=== PATIENT | male | born 1950 | race Caucasian/White ===

== ENCOUNTER 2018-03-18 15:54 | Inpatient (IN) | payer MEDICARE ==
[~2018-03-18] VITALS: Ht 175.3 cm; Wt 99.1 kg
--- NOTE | ~2018-03-18 | EC ---
PATIENT:TARA JOSEPH DATE OF SERVICE: 03/18/18 SEX: M MEDICAL RECORD: [id number] DATE OF : 50 LOCATION:D.M2 D.213 AGE OF PATIENT: 67 ADMISSION DATE: 03/18/18 REFERRING PHYSICIAN: INTERPRETING PHYSICIAN: LORENA MANRIQUE MD ECHOCARDIOGRAM REPORT ECHO CHARGES 4 ECHO COMPLETE Date: 03/21 CLINICAL DIAGNOSIS: DYSPNEA/PULMONARY HTN ECHOCARDIOGRAPHIC MEASUREMENTS (adult normal given) AC root (d.<3.7cm) 2.8 cm LV Septum d (<1.2 cm> 1.1 cm Valve Excursion 2.2 cm LV Septum (systole) 1.4 cm Left Atria (s.<4.0cm> 4.4 cm LVPW d(<1.2cm) 1.1 cm RV (d.<2.3cm) 3.6 cm LVPW (sytole) 1.9 cm LV diastole(<5.6CM) 5.4 cm MV E-F(>70mm/sec) cm LV systole 3.3 cm LVOT Diameter 2.0 cm MV exc.(>10mm) cm Est.ejection fraction (50-75%) % DOPPLER: LVIT cm/sec A 36.0 cm/sec E 105 cm/sec LA cm/sec RVSP 59.0 mmHg LVOT 97.0 cm/sec AOP1/2T m/s Asc. Ao 130 cm/sec RVOT 75.0 cm/sec RA cm/sec PA 106 cm/sec AV Gradient Peak 6.8 mmHg AV Mean 3.7 mmHg AV Area 2.0 cm MV Gradient Peak 6.1 mmHg MV Mean 2.0 mmHg MV Area cm COMMENTS: Store Manager: Deny [employer] Accounting Teacher: 3 Dr. Quinones TAPE# PACS Pericardial Effusion N DATE OF SERVICE: Adequate 2D echo, color flow, spectral Doppler, and M-mode. No LVH. LV internal dimensions are normal. Wall motion is normal. EF is greater than or equal to 55%. Aortic valve is tricuspid. There is no septation. Left atrium is dilated at 4.4 cm. Mitral valve is thickened. Mild MR. Right-sided chambers appear grossly normal. Right atrium may be minimally dilated. Moderate TR by color flow imaging. RV systolic pressure is estimated to be greater than or equal to 59 mmHg via the continuity equation. ECHOCARDIOGRAM REPORT [id number] TARA JOSEPH TRANSINT:[id number] Voice Confirmation ID: [id number] DOCUMENT ID: [id number] LORENA MANRIQUE MD at 0804 CC: [id number] DICTATION DATE: 03/21/18 1358 HANDER IN: 03/21/18 1433 DIS IN 03/21/18 [id number] [place] [address]
--- NOTE | ~2018-03-18 | CN ---
PATIENT NAME:TARA JOSEPH MEDICAL RECORD: [id number] : 50 LOCATION:D. D.2137 ADMIT DATE: 03/18/18 ACCOUNT: [id number] CONSULTING PHYSICIAN: BENJIE BEAL MD REFERRING PHYSICIAN: NORMA CAMPOS MD DATE OF CONSULTATION: 03/19/2018 CONSULT REQUESTING PHYSICIAN: Riccardo Posey MD REASON FOR CONSULTATION: Shortness of breath, fever. HISTORY OF PRESENT ILLNESS: Mr. Joseph is a 67-year-old gentleman who is sick for the last 4 weeks. He is coughing. He has wheezing and shortness of breath. He is running fever of 104. He took 2 courses of antibiotic as outpatient without any benefit. REVIEW OF THE SYSTEMS: Mainly in the history of present illness. PAST MEDICAL HISTORY: 1. Asthma. 2. Obstructive sleep apnea. 3. Coronary artery disease. 4. Status post pacemaker placement. 5. Atrial fibrillation. 6. Anxiety. 7. PTSD. PAST SURGICAL HISTORY: 1. T&A. 2. CABG in 2000. 3. Status post cardiac catheterization and stent placement. 4. Status post pacemaker placement. 5. Vein stripping surgery in left lower extremity. ALLERGIES: HE IS ALLERGIC TO NSAIDs, ALPRAZOLAM, DIAZEPAM, TORADOL, CLARITIN, NITROGLYCERIN. PRESENT MEDICATIONS: [employer] is reviewed. PERSONAL AND SOCIAL HISTORY: The patient never smoked. He is nondrinker. FAMILY HISTORY: Noncontributory. PHYSICAL EXAMINATION: GENERAL: Now, the patient is lying comfortably in bed. He is not in acute distress. VITAL SIGNS: The blood pressure is 111/54, pulse is 90, respiration 20, temperature 98.4, SpO2 is 98% on 3 liters nasal cannula. HEENT: Conjunctivae are pink. Sclerae are not icteric. NECK: Supple. No JVD. CHEST: There are wheeze on forceful expiration and crackle at the left base. HEART: Rhythm regular. Normal sound. No murmur. ABDOMEN: Abdomen is soft. Bowel sounds present. No hepatosplenomegaly. RECTAL: Deferred. EXTREMITIES: No cyanosis. No clubbing. No pedal edema. CONSULT REPORT [id number] TARA JOSEPH SKIN: The skin is warm. Normal turgor. CENTRAL NERVOUS SYSTEM: The patient is awake and alert. There is no obvious cranial nerve abnormality. The gait was not tested. LABORATORY DATA: CBC; the WBC is 17.9, hemoglobin 13.6, hematocrit 41.7, and the platelet count is 183. Chemistry; sodium 138, potassium is 3.9, BUN is 12, creatinine is 0.9. INR is 1.25. IMPRESSION: 1. Pneumonia, left lower lobe, most likely community-acquired pneumonia. 2. Acute hypoxic respiratory failure. 3. Acute exacerbation of asthma. 4. Obstructive sleep apnea. 5. Leukocytosis secondary to pneumonia. 6. History of CAD. 7. Atrial fibrillation. RECOMMENDATION: 1. Continue Rocephin. I will add doxycycline. I will discontinue Zithromax. 2. Start methylprednisolone IV. Start Brovana and budesonide nebulizer. 3. Albuterol and ipratropium nebulizer. Start on Singulair. 4. Check the CT scan of the chest. 5. Followup labs and chest radiograph. Dr. Posey, thank you for involving me in the care of Mr. Joseph. TRANSINT:[id number] Voice Confirmation ID: [id number] DOCUMENT ID: [id number] BENJIE BEAL MD at 1208 CC: RICCARDO POSEY MD [id number] DICTATION DATE: 03/19/18 1542 MANAGER COMPETITIVE INTELLIGENCE: 03/19/18 1721 DIS IN 03/21/18 [id number] [place] [address]
[~2018-03-18 15:54] MED LIST: AMBIEN10 MG PO; ATENOLOL25 MG PO; COUMADIN2.5 MG PO; K-DUR20 MEQ PO; KLONOPIN0.5 MG PO; LASIX40 MG PO; LOVAZA1 G PO; NORCO 10/325 TA1 TA1 PO; PRILOSEC20 MG PO; [UNRECOGNIZED DRUG - OTHER] PO
[2018-03-18 16:45] LABS: BASOPHILS 0.1 % (0-2); EOSINOPHILS 0 % (0-7); HEMATOCRIT 41.7 % (42.0-54.0); HEMOGLOBIN 13.6 g/dL (13.5-17.5); IMMATURE GRANULOCYTES 0.5 % (0-5); MCH 29.7 pg (26.0-34.0); MCHC 32.6 g/dL (31.0-37.0); MEAN PLATELET VOLUME 9.9 fL (7.4-10.4); MONOCYTES 5.8 % (2-11); NEUTROPHILS 86.6 % (40-80); PLATELET COUNT 103 10x3/uL (130-400); RBC 4.58 10x6/uL (4.20-6.10); RDW 16.7 % (11.5-14.5); WBC 17.9 10x3/uL (4.8-10.8)
[2018-03-18 16:55] LABS: APPEARANCE CLEAR (CLEAR); BILIRUBIN NEGATIVE (NEGATIVE); COLOR AMBER (YELLOW); GLUCOSE NEGATIVE (NEGATIVE); KETONE NEGATIVE (NEGATIVE); NITRITE NEGATIVE (NEGATIVE); PROTEIN NEGATIVE (NEGATIVE); SPECIFIC GRAVITY 1.015 (1.005-1.020); UROBILINOGEN NORMAL (NORMAL)
[2018-03-18 17:03] LABS: POTASSIUM - SERUM 3.8 mmol/L (3.5-5.1)
[2018-03-18 17:17] LABS: ALBUMIN 2.7 g/dL (3.4-5.0); ANION GAP 15.7 mmol/L (8-16); BILIRUBIN - TOTAL 1.62 mg/dL (0.2-1.3); CALCIUM 8.9 mg/dL (8.5-10.1); CARBON DIOXIDE 22.1 mmol/L (21.0-32.0); CREATININE - SERUM 1.1 mg/dL (0.6-1.3)
[2018-03-18 20:00] VITALS: BP 89/55
[2018-03-19] VITALS: BP 91/60
[2018-03-19 01:58] VITALS: BMI 30.9
[2018-03-19 04:00] VITALS: BP 94/55
[2018-03-19 09:17] VITALS: BP 83/46
[2018-03-19 10:44] VITALS: BP 111/54
[2018-03-19 13:30] LABS: INR 1.25 (0.85-1.17); PROTIME 15.3 SECONDS (11.6-15.0)
[2018-03-19 14:53] LABS: BASOPHILS 0.2 % (0-2); EOSINOPHILS 0.4 % (0-7); HEMATOCRIT 36.4 % (42.0-54.0); IMMATURE GRANULOCYTES 0.4 % (0-5); LYMPHOCYTES 21.1 % (15-50); MCH 29.8 pg (26.0-34.0); MCV 90.3 fL (80.0-100.0); MEAN PLATELET VOLUME 9.1 fL (7.4-10.4); MONOCYTES 6.6 % (2-11); NEUTROPHILS 71.3 % (40-80); PLATELET COUNT 90 10x3/uL (130-400); RBC 4.03 10x6/uL (4.20-6.10); RDW 16.6 % (11.5-14.5)
[2018-03-19 14:58] LABS: WBC 10.7 10x3/uL (4.8-10.8)
[2018-03-19 15:15] LABS: ALBUMIN 2.5 g/dL (3.4-5.0); ALKALINE PHOSPHATASE 106 U/L (46-116); ALT (SGPT) 16 U/L (10-68); CALC OSMOLALITY 279 mosm/kg (275-300); CALCIUM 8.2 mg/dL (8.5-10.1); CHLORIDE - SERUM 104 mmol/L (98-107); CREATININE - SERUM 0.9 mg/dL (0.6-1.3); GLUCOSE 165 mg/dL (74-106); POTASSIUM - SERUM 3.9 mmol/L (3.5-5.1); SODIUM 138 mmol/L (136-145); UREA NITROGEN 12 mg/dL (7-18); eGFR NON AFRICAN AMERICAN 89 mL/min (90-120)
[2018-03-19 15:17] VITALS: BP 133/71
[2018-03-19 15:20] LABS: PLATELET ESTIMATE DECREASED
[2018-03-19 19:42] VITALS: BP 126/74
[2018-03-20 00:58] VITALS: BP 105/66
[2018-03-20 04:00] VITALS: BP 107/73
[2018-03-20 07:15] LABS: BASOPHILS 0 % (0-2); EOSINOPHILS 0 % (0-7); HEMATOCRIT 37.1 % (42.0-54.0); IMMATURE GRANULOCYTES 0.5 % (0-5); MCH 29.5 pg (26.0-34.0); MCHC 32.3 g/dL (31.0-37.0); MCV 91.2 fL (80.0-100.0); MONOCYTES 1.8 % (2-11); NEUTROPHILS 84.7 % (40-80); PLATELET COUNT 107 10x3/uL (130-400); RBC 4.07 10x6/uL (4.20-6.10); RDW 16.7 % (11.5-14.5); WBC 9.7 10x3/uL (4.8-10.8)
[2018-03-20 07:35] LABS: ALBUMIN 2.5 g/dL (3.4-5.0); ALKALINE PHOSPHATASE 113 U/L (46-116); BILIRUBIN - TOTAL 0.41 mg/dL (0.2-1.3); CALCIUM 8.8 mg/dL (8.5-10.1); CARBON DIOXIDE 21.4 mmol/L (21.0-32.0); CHLORIDE - SERUM 102 mmol/L (98-107); CREATININE - SERUM 0.9 mg/dL (0.6-1.3); POTASSIUM - SERUM 4.1 mmol/L (3.5-5.1); SODIUM 136 mmol/L (136-145); UREA NITROGEN 11 mg/dL (7-18); eGFR NON AFRICAN AMERICAN 89 mL/min (90-120)
[2018-03-20 07:41] LABS: ALT (SGPT) 11 U/L (10-68); CALC OSMOLALITY 280 mosm/kg (275-300); GLUCOSE 270 mg/dL (74-106)
[2018-03-20 07:46] VITALS: BP 104/61
[2018-03-20 10:36] VITALS: BP 115/64
[2018-03-20 14:01] VITALS: Ht 175.3 cm; Wt 99.1 kg
[2018-03-20 15:35] LABS: INR 1.22 (0.85-1.17)
[2018-03-20 16:15] VITALS: BP 111/78
[2018-03-20 20:00] VITALS: BP 118/67
[2018-03-21] VITALS: BP 107/64
[2018-03-21 04:00] VITALS: BP 102/48
[2018-03-21 05:57] LABS: BASOPHILS 0 % (0-2); EOSINOPHILS 0 % (0-7); HEMOGLOBIN 11.6 g/dL (13.5-17.5); IMMATURE GRANULOCYTES 0.3 % (0-5); LYMPHOCYTES 8.7 % (15-50); MCH 29.4 pg (26.0-34.0); MCHC 32.2 g/dL (31.0-37.0); MCV 91.1 fL (80.0-100.0); MEAN PLATELET VOLUME 9.4 fL (7.4-10.4); MONOCYTES 3.2 % (2-11); NEUTROPHILS 87.8 % (40-80); PLATELET COUNT 116 10x3/uL (130-400); RBC 3.95 10x6/uL (4.20-6.10); RDW 16.6 % (11.5-14.5)
[2018-03-21 06:02] LABS: WBC 12.5 10x3/uL (4.8-10.8)
[2018-03-21 06:07] LABS: INR 1.16 (0.85-1.17); PROTIME 14.3 SECONDS (11.6-15.0)
[2018-03-21 06:21] LABS: ALBUMIN 2.5 g/dL (3.4-5.0); ALKALINE PHOSPHATASE 115 U/L (46-116); CALCIUM 9.1 mg/dL (8.5-10.1); CARBON DIOXIDE 24.8 mmol/L (21.0-32.0); CHLORIDE - SERUM 105 mmol/L (98-107); CREATININE - SERUM 0.9 mg/dL (0.6-1.3); GLUCOSE 252 mg/dL (74-106); POTASSIUM - SERUM 4.1 mmol/L (3.5-5.1); PROTEIN - SERUM 7.4 g/dL (6.4-8.2); SODIUM 137 mmol/L (136-145); eGFR NON AFRICAN AMERICAN 89 mL/min (90-120)
[2018-03-21 06:22] LABS: ALT (SGPT) 19 U/L (10-68); CALC OSMOLALITY 283 mosm/kg (275-300); UREA NITROGEN 16 mg/dL (7-18)
[2018-03-21 08:53] VITALS: BP 116/59
[2018-03-21 12:36] VITALS: BP 104/55
[2018-03-21 15:38] VITALS: BP 119/64
[2018-03-21] MEDS ORDERED: FLORAJEN3 CAPS460 MG PO (15:46)
[2018-03-21] MEDS ORDERED: DOXYCYCLINE HY100 M2 PO (15:47)
[2018-03-21] MEDS ORDERED: AUGMENTIN 875-11 TAB PO (15:47)
[2018-03-21] MEDS ORDERED: IPRAT-ALBUT 0.5-3 ML UPD (16:47)
== END 2018-03-21 18:27 | disposition home or self-care (01) | DRG 193 ==
LOC: D.ER 15:54 → D.EDHOLD 17:39 → D.M2 17:39
PROVIDERS: Emergency Medicine; Family Medicine
DX: J18.9 Pneumonia, unspecified organism (principal); J96.01 Acute respiratory failure with hypoxia; J45.901 Unspecified asthma with (acute) exacerbation; I25.10 Atherosclerotic heart disease of native coronary artery without angina pectoris; G47.33 Obstructive sleep apnea (adult) (pediatric); I48.2 Chronic atrial fibrillation; Z79.01 Long term (current) use of anticoagulants; I95.9 Hypotension, unspecified; E86.0 Dehydration; R91.1 Solitary pulmonary nodule; F43.10 Post-traumatic stress disorder, unspecified; F41.9 Anxiety disorder, unspecified; M79.7 Fibromyalgia; Z95.0 Presence of cardiac pacemaker

== ENCOUNTER 2021-04-29 19:44 | Inpatient (IN) | payer MEDICARE ==
[~2021-04-29] VITALS: Ht 177.8 cm; Wt 99.3 kg
[~2021-04-29 19:44] MED LIST changes: +AUGMENTIN 875-11 TAB PO; +DOXYCYCLINE HY100 M2 PO; +FLORAJEN3 CAPS460 MG PO; +IPRAT-ALBUT 0.5-3 ML UPD
[2021-04-29 20:20] LABS: BASOPHILS 1.2 % (0-2); EOSINOPHILS 3.1 % (0-7); HEMOGLOBIN 12.2 g/dL (13.5-17.5); LYMPHOCYTES 11.9 % (15-50); MCH 28.9 pg (26.0-34.0); MCHC 32.2 g/dL (31.0-37.0); MCV 89.6 fL (80.0-100.0); MEAN PLATELET VOLUME 6.4 fL (7.4-10.4); MONOCYTES 5.1 % (2-11); NEUTROPHILS 78.7 % (40-80); RBC 4.24 10x6/uL (4.20-6.10); RDW 15.6 % (11.5-14.5); WBC 13.9 10x3/uL (4.8-10.8)
[2021-04-29 20:22] LABS: PLATELET COUNT 210 10x3/uL (130-400)
[2021-04-29 20:28] LABS: CALC OSMOLALITY 276 mosm/kg (275-300); CALCIUM 8.6 mg/dL (8.5-10.1); CHLORIDE - SERUM 98 mmol/L (98-107); CREATININE - SERUM 0.8 mg/dL (0.6-1.3); GLUCOSE 131 mg/dL (74-106); POTASSIUM - SERUM 3.5 mmol/L (3.5-5.1); SODIUM 138 mmol/L (136-145); UREA NITROGEN 11 mg/dL (7-18); eGFR NON AFRICAN AMERICAN > 90 mL/min (90-120)
[2021-04-29 20:34] LABS: APTT 91.2 SECONDS (22.8-39.4); PROTIME 45.1 SECONDS (11.6-15.0)
[2021-04-29 20:35] LABS: D-DIMER-QUANTITATIVE < 0.27 ug/mLFEU (0.20-0.54)
[2021-04-29 20:43] LABS: ALBUMIN 3.1 g/dL (3.4-5.0); ALKALINE PHOSPHATASE 102 U/L (30-120); ALT (SGPT) 22 U/L (10-68); BILIRUBIN - TOTAL 1.41 mg/dL (0.2-1.3); C-REACTIVE PROTEIN 13.2 mg/dL (0.0-0.9); MAGNESIUM - SERUM 2.1 mg/dL (1.8-2.4); PRO BNP 699 pg/mL (0-125); PROTEIN - SERUM 7.6 g/dL (6.4-8.2); THYROID STIMULATING HORMONE 4.15 uIU/mL (0.36-3.74); TROPONIN-I < 0.017 ng/mL (0.000-0.060)
[2021-04-29 20:49] LABS: INR 5.26 (0.85-1.17)
[2021-04-29 21:52] VITALS: BP 124/73
[2021-04-30] VITALS (21 sets, daily range): BP systolic 103–159; BP diastolic 64–87; BMI 40.2
[2021-04-30 01:11] LABS: SARS-CoV-2 ANTIGEN NEGATIVE- SARS-COV-2 (NEGATIVE)
--- NOTE | 2021-04-30 03:05 | NUR ---
RESPIRATORY CULTURE SENT TO LAB
[2021-04-30 03:52] LABS: BILIRUBIN NEGATIVE (NEGATIVE); KETONE NEGATIVE mg/dL (< 1+); NITRITE NEGATIVE (NEGATIVE); UROBILINOGEN NORMAL mg/dL (< 2); WHITE CELLS - URINE 1 HPF (0-1)
--- NOTE | 2021-04-30 04:14 | NUR ---
PT TURNED TO LEFT SIDE, TACHYPNEIC AT 26/MIN AND SPO2 93% PT STATES HE IS FEELING "A LITTLE" BETTER.
[2021-04-30 08:19] LABS: BASOPHILS 0.7 % (0-2); EOSINOPHILS 0.1 % (0-7); HEMATOCRIT 35.8 % (42.0-54.0); HEMOGLOBIN 11.5 g/dL (13.5-17.5); LYMPHOCYTES 4.7 % (15-50); MCH 28.7 pg (26.0-34.0); MCV 89.7 fL (80.0-100.0); MEAN PLATELET VOLUME 6.9 fL (7.4-10.4); MONOCYTES 2.4 % (2-11); NEUTROPHILS 92.1 % (40-80); PLATELET COUNT 191 10x3/uL (130-400); RDW 15.9 % (11.5-14.5); WBC 12.8 10x3/uL (4.8-10.8)
[2021-04-30 08:25] LABS: INR 4.83 (0.85-1.17); PROTIME 42.2 SECONDS (11.6-15.0)
[2021-04-30 08:47] LABS: ALBUMIN 2.8 g/dL (3.4-5.0); ALKALINE PHOSPHATASE 93 U/L (30-120); ALT (SGPT) 19 U/L (10-68); BILIRUBIN - TOTAL 1.71 mg/dL (0.2-1.3); CALCIUM 8.7 mg/dL (8.5-10.1); CARBON DIOXIDE 29.8 mmol/L (21.0-32.0); CHLORIDE - SERUM 98 mmol/L (98-107); CREATININE - SERUM 0.8 mg/dL (0.6-1.3); FERRITIN 119 ng/mL (3-244); LDH 338 U/L (85-227); MAGNESIUM - SERUM 2.2 mg/dL (1.8-2.4); PHOSPHOROUS 3.8 mg/dL (2.5-4.9); PROTEIN - SERUM 7.3 g/dL (6.4-8.2); SODIUM 133 mmol/L (136-145); UREA NITROGEN 12 mg/dL (7-18); eGFR NON AFRICAN AMERICAN > 90 mL/min (90-120)
[2021-04-30 08:52] LABS: CALC OSMOLALITY 271 mosm/kg (275-300); GLUCOSE 209 mg/dL (74-106); POTASSIUM - SERUM 4.6 mmol/L (3.5-5.1)
[2021-04-30 08:57] LABS: C-REACTIVE PROTEIN 23.9 mg/dL (0.0-0.9)
[2021-04-30 09:22] LABS: ERYTHROCYTE SEDIMENTATION RATE 42 mm/hr (0-20)
--- NOTE | 2021-04-30 18:45 | NUR ---
DR ROBB AT BEDSIDE
[2021-04-30 19:05] LABS: BASOPHILS 0.4 % (0-2); EOSINOPHILS 0 % (0-7); HEMATOCRIT 33.8 % (42.0-54.0); HEMOGLOBIN 10.7 g/dL (13.5-17.5); LYMPHOCYTES 6.2 % (15-50); MCH 28.4 pg (26.0-34.0); MCHC 31.7 g/dL (31.0-37.0); MCV 89.7 fL (80.0-100.0); MEAN PLATELET VOLUME 6.8 fL (7.4-10.4); MONOCYTES 4.3 % (2-11); NEUTROPHILS 89.1 % (40-80); PLATELET COUNT 167 10x3/uL (130-400); RBC 3.77 10x6/uL (4.20-6.10)
[2021-05-01] VITALS (8 sets, daily range): BP systolic 121–139; BP diastolic 75–88
[2021-05-01 06:33] LABS: BASOPHILS 0.2 % (0-2); EOSINOPHILS 0 % (0-7); HEMATOCRIT 31.8 % (42.0-54.0); HEMOGLOBIN 10.2 g/dL (13.5-17.5); LYMPHOCYTES 2.5 % (15-50); MCH 28.4 pg (26.0-34.0); MCHC 32.2 g/dL (31.0-37.0); MCV 88.3 fL (80.0-100.0); MEAN PLATELET VOLUME 6.5 fL (7.4-10.4); MONOCYTES 2.2 % (2-11); NEUTROPHILS 95.1 % (40-80); PLATELET COUNT 171 10x3/uL (130-400); RDW 15.8 % (11.5-14.5); WBC 14.6 10x3/uL (4.8-10.8)
[2021-05-01 06:38] LABS: INR 4.79 (0.85-1.17); PROTIME 41.9 SECONDS (11.6-15.0)
[2021-05-01 07:15] LABS: ALBUMIN 3.2 g/dL (3.4-5.0); ALKALINE PHOSPHATASE 79 U/L (30-120); ALT (SGPT) 17 U/L (10-68); BILIRUBIN - TOTAL 1.11 mg/dL (0.2-1.3); CALC OSMOLALITY 278 mosm/kg (275-300); CARBON DIOXIDE 28.1 mmol/L (21.0-32.0); CHLORIDE - SERUM 101 mmol/L (98-107); CREATININE - SERUM 0.8 mg/dL (0.6-1.3); GLUCOSE 206 mg/dL (74-106); MAGNESIUM - SERUM 2.3 mg/dL (1.8-2.4); POTASSIUM - SERUM 4.5 mmol/L (3.5-5.1); PROTEIN - SERUM 6.9 g/dL (6.4-8.2); SODIUM 136 mmol/L (136-145); UREA NITROGEN 14 mg/dL (7-18); eGFR NON AFRICAN AMERICAN > 90 mL/min (90-120)
[2021-05-01 07:18] LABS: PHOSPHOROUS 2.8 mg/dL (2.5-4.9)
[2021-05-01 07:39] LABS: ERYTHROCYTE SEDIMENTATION RATE 58 mm/hr (0-20)
--- NOTE | 2021-05-01 18:06 | NUR ---
REPORT CALLED TO [facility]. PT TRANSPORTED TO 2133. PT BELONGINGS SENT WITH PT. PT STABLE AT TRANSPORT.
--- NOTE | 2021-05-01 18:46 | NUR ---
RECEIVED FROM ICU, PATIENTHAS 22 G TO R HAND NS INFUSING KVO AT 10. ADMINISTED FOR SHORTNESS OF BREATH AND CHEST PAIN. RESP EVEN AND UNLABORED AT THIS TIME ON HF O2 AT 8L VIA NASAL CANNULA. PACEMAKER WITH DEFIB. TO LEFT UPPER CHEST WALL. HAS PAIN IN RIGHT UPPER QUAD ENLARGED RIGHT QUAD. PATIENT IS UP WITH ASSIST USES URINAL. COUMADIN HELD UNTIL BELOW 3. CLEAR LIGQUID DIET. ANNA HOSE IN PLACE TO KNEE NO SCDS AT THIS TIME. RAPID FOR COVID IN ER NEGATIVE.
[2021-05-02 01:13] VITALS: BP 126/81
[2021-05-02 01:20] VITALS: BP 140/68
[2021-05-02 06:50] LABS: BASOPHILS 0 % (0-2); EOSINOPHILS 0 % (0-7); HEMATOCRIT 32.2 % (42.0-54.0); HEMOGLOBIN 9.9 g/dL (13.5-17.5); IMMATURE GRANULOCYTES 0.4 % (0-5); LYMPHOCYTE ABS# 0.55 10x3/uL (1.32-3.57); LYMPHOCYTES 3.8 % (15-50); MCH 28.1 pg (26.0-34.0); MCHC 30.7 g/dL (31.0-37.0); MCV 91.5 fL (80.0-100.0); MEAN PLATELET VOLUME 9.4 fL (7.4-10.4); MONOCYTES 2.5 % (2-11); NEUTROPHIL ABS# 13.35 10x3/uL (1.78-5.38); NEUTROPHILS 93.3 % (40-80); PLATELET COUNT 199 10x3/uL (130-400); RBC 3.52 10x6/uL (4.20-6.10); RDW 15.2 % (11.5-14.5); WBC 14.3 10x3/uL (4.8-10.8)
[2021-05-02 06:54] LABS: APTT 54.2 SECONDS (22.8-39.4); INR 3.8 (0.85-1.17); PROTIME 34.9 SECONDS (11.6-15.0)
--- NOTE | 2021-05-02 07:20 | NUR ---
RECIEVE REPORT. RESTING IN BED WITH EYES CLOSED. NO SIGNS OF DISTRESS. CONTINUE PLAN OF CARE AND SAFETY PRECAUTIONS.
[2021-05-02 07:23] LABS: ALKALINE PHOSPHATASE 81 U/L (30-120); ALT (SGPT) 16 U/L (10-68); BILIRUBIN - TOTAL 0.98 mg/dL (0.2-1.3); CALC OSMOLALITY 280 mosm/kg (275-300); CALCIUM 8.6 mg/dL (8.5-10.1); CHLORIDE - SERUM 102 mmol/L (98-107); CREATININE - SERUM 0.7 mg/dL (0.6-1.3); GLUCOSE 207 mg/dL (74-106); MAGNESIUM - SERUM 2.3 mg/dL (1.8-2.4); POTASSIUM - SERUM 4.1 mmol/L (3.5-5.1); PROTEIN - SERUM 6.9 g/dL (6.4-8.2); SODIUM 137 mmol/L (136-145); UREA NITROGEN 16 mg/dL (7-18); eGFR NON AFRICAN AMERICAN > 90 mL/min (90-120)
[2021-05-02 08:30] LABS: ALBUMIN 2.6 g/dL (3.4-5.0); CARBON DIOXIDE 28.9 mmol/L (21.0-32.0)
[2021-05-02 16:50] VITALS: BP 118/67
[2021-05-02 20:35] VITALS: BP 120/76
[2021-05-03 01:21] VITALS: BP 115/65
[2021-05-03 05:28] VITALS: BP 122/69
--- NOTE | 2021-05-03 07:20 | NUR ---
RECIEVE REPORT. RESTING IN BED WITH EYES CLOSED. SINUS RHYTHM ON TELEMETRY. REQUEST TO BE OOB TO CHAIR TODAY. PHYSICAL THERAPY ORDERED. DENIES ANY OTHER NEEDS. CONTINUE PAIN MANAGEMENT ORDERED. CONTINUE PLAN OF CARE AND SAFETY PRECAUTIONS.
[2021-05-03 08:48] LABS: ALBUMIN 2.5 g/dL (3.4-5.0); ALKALINE PHOSPHATASE 84 U/L (30-120); ALT (SGPT) 14 U/L (10-68); BILIRUBIN - TOTAL 1.13 mg/dL (0.2-1.3); CALC OSMOLALITY 280 mosm/kg (275-300); CALCIUM 8.5 mg/dL (8.5-10.1); CARBON DIOXIDE 32.1 mmol/L (21.0-32.0); CHLORIDE - SERUM 102 mmol/L (98-107); CREATININE - SERUM 0.7 mg/dL (0.6-1.3); GLUCOSE 167 mg/dL (74-106); MAGNESIUM - SERUM 2.2 mg/dL (1.8-2.4); PHOSPHOROUS 2.8 mg/dL (2.5-4.9); POTASSIUM - SERUM 3.6 mmol/L (3.5-5.1); SODIUM 138 mmol/L (136-145); UREA NITROGEN 16 mg/dL (7-18); eGFR NON AFRICAN AMERICAN > 90 mL/min (90-120)
--- NOTE | 2021-05-03 08:58 | NUR ---
C/O PAIN ALL OVER 07/30, STATES THAT HE CAN NOT EAT UNTIL HE HAS A PAIN PILL. NORCO GIVEN.
[2021-05-03 09:00] VITALS: BP 125/71
[2021-05-03 09:03] LABS: BASOPHILS 0.1 % (0-2); EOSINOPHILS 0.1 % (0-7); HEMATOCRIT 33.6 % (42.0-54.0); HEMOGLOBIN 10.8 g/dL (13.5-17.5); MCH 28.7 pg (26.0-34.0); MCHC 32.1 g/dL (31.0-37.0); MONOCYTES 5.2 % (2-11); NEUTROPHILS 84.6 % (40-80); PLATELET COUNT 205 10x3/uL (130-400); RBC 3.76 10x6/uL (4.20-6.10)
[2021-05-03 09:22] LABS: MCV 89.3 fL (80.0-100.0)
[2021-05-03 11:32] LABS: INR 2.65 (0.85-1.17); PROTIME 26.3 SECONDS (11.6-15.0)
[2021-05-03 12:00] VITALS: BP 123/80
--- NOTE | 2021-05-03 12:47 | NUR ---
OT NOTE: ATTEMPTED EVAL X 2 TODAY. PT REFUSED STATING THAT HE JUST COULDNT DO IT TODAY / SOB.. STATED THAT HE WOULD TRY TOMORROW. WILL RE ATTEMPT IN AM. GORDON BRISENO OTR/L
--- NOTE | 2021-05-03 19:11 | NUR ---
RECEIVED BEDSIDE REPORT. ROUNDING COMPLETE. PATIENT IS ALERT AND ORIENTED, RESTING COMFORTABLY IN BED. RESPIRATIONS ARE SHALLOW AND LABORED. PATIENT STATES THIS IS HIS NORMAL. NO S/S OF DISTRESS. NO C/O PAIN. NEEDS MET. CALL LIGHT WITHIN REACH. WILL CPOC.
[2021-05-03 21:22] VITALS: BP 140/79
[2021-05-04 00:04] VITALS: BP 125/72
[2021-05-04 05:10] VITALS: BP 107/62
[2021-05-04 05:45] LABS: BASOPHILS 0.1 % (0-2); EOSINOPHILS 0 % (0-7); HEMATOCRIT 32.5 % (42.0-54.0); HEMOGLOBIN 10.5 g/dL (13.5-17.5); LYMPHOCYTES 4.5 % (15-50); MCH 28.8 pg (26.0-34.0); MCHC 32.3 g/dL (31.0-37.0); MCV 89.1 fL (80.0-100.0); MONOCYTES 3.3 % (2-11); NEUTROPHILS 92.1 % (40-80); PLATELET COUNT 182 10x3/uL (130-400); RBC 3.65 10x6/uL (4.20-6.10); WBC 13.7 10x3/uL (4.8-10.8)
[2021-05-04 06:20] LABS: ALBUMIN 2.4 g/dL (3.4-5.0); ALKALINE PHOSPHATASE 97 U/L (30-120); ALT (SGPT) 15 U/L (10-68); CALC OSMOLALITY 279 mosm/kg (275-300); CALCIUM 8.8 mg/dL (8.5-10.1); CARBON DIOXIDE 29.4 mmol/L (21.0-32.0); CHLORIDE - SERUM 102 mmol/L (98-107); CREATININE - SERUM 0.7 mg/dL (0.6-1.3); GLUCOSE 203 mg/dL (74-106); MAGNESIUM - SERUM 2.4 mg/dL (1.8-2.4); SODIUM 136 mmol/L (136-145); UREA NITROGEN 17 mg/dL (7-18); eGFR NON AFRICAN AMERICAN > 90 mL/min (90-120)
[2021-05-04 06:23] LABS: PHOSPHOROUS 3.7 mg/dL (2.5-4.9); POTASSIUM - SERUM 4.4 mmol/L (3.5-5.1)
--- NOTE | 2021-05-04 07:20 | NUR ---
RECIEVE REPORT. ALERT AND ORIENTED X4. SITTING UP IN BED. O2 SAT 90% 14L HF. REPORTS ABDOMINAL PAIN 06/29. CONTINUE PAIN MANAGEMENT. CONTINUE PLAN OF CARE AND SAFETY PRECAUTIONS.
[2021-05-04 08:00] VITALS: BP 136/73
[2021-05-04 12:00] VITALS: BP 124/73
[2021-05-04 12:12] LABS: PROCALCITONIN 0.21 ng/mL (0.00-0.08)
--- NOTE | 2021-05-04 13:07 | NUR ---
OT NOTE: PT DISCUSSED IN IDT MTG TODAY. ATTEMPTED OT/PT EVAL YESTERDAY BUT PT FELT THAT HE COULD NOT PARTICIPATE. TODAY, PTS O2 SATS ARE 90% ON 14L HF.. INFORMED TEAM THAT THERAPY WOULD HOLD UNTIL 02 DEMANDS ARE LESS. THANK YOU FOR REFERAL GORDON WINTERS, OTR/L
[2021-05-04 16:00] VITALS: BP 126/70
[2021-05-04 21:21] VITALS: BP 130/76
[2021-05-05 00:27] VITALS: BP 133/79
[2021-05-05 06:16] VITALS: BP 132/87
--- NOTE | 2021-05-05 06:50 | NUR ---
PT LYING IN BED WITH HOB ELEVATED 45 DEGREES. RESP EVEN AND LABORED. BIPAP IN PLACE. AAO X4. DENIES NEEDS AT THIS TIME. CLIR. BED IN LOWEST POSITION. FAMILY MEMBER AT BEDISE
[2021-05-05 08:02] LABS: CREATININE - SERUM 0.7 mg/dL (0.6-1.3); VANCOMYCIN - TROUGH 19.1 ug/mL (10.0-20.0)
[2021-05-05 09:00] VITALS: BP 155/87
[2021-05-05 10:33] LABS: INR 3.03 (0.85-1.17); PROTIME 29.2 SECONDS (11.6-15.0)
--- NOTE | 2021-05-05 11:40 | NUR ---
I have reviewed this patient and I concur with the Shift Assessment completed by the Licensed Practical Nurse today this shift.
[2021-05-05 12:00] VITALS: BP 130/74
[2021-05-05 20:16] VITALS: BP 144/82
--- NOTE | 2021-05-05 22:18 | NUR ---
PT EXTREAMLY ANXIOUS CONCERNING HIS OXYGENATION. PT IS UNABLE TO COME OF BIPAP WITHOUT O2 RAPIDLY DROPPING INTO THE 60'S. PT HAS BEEN ON BIPAP FOR 3 DAYS. HE AND HIS PARTNER EXPRESS CONCERN AND WOULD LIKE TO KNOW THE NEXT STEP IN CARE. PT, RT, NURSE, AND PARTNER REQUESTING SOMETHING TO HELP PT RELAX. DR. HOROWITZ PAGETho. PT VSS. STABLE RR 26 91-92% ON CONTINUES BIPAP. WILL CONTINUE TO MONITOR.
[2021-05-05 23:46] VITALS: BP 147/91
[2021-05-06 05:24] VITALS: BP 130/79
[2021-05-06 05:42] LABS: BASOPHILS 0.2 % (0-2); EOSINOPHILS 0.1 % (0-7); HEMATOCRIT 35.6 % (42.0-54.0); HEMOGLOBIN 11.5 g/dL (13.5-17.5); LYMPHOCYTES 4.1 % (15-50); MCH 28.6 pg (26.0-34.0); MCHC 32.2 g/dL (31.0-37.0); MCV 88.6 fL (80.0-100.0); MEAN PLATELET VOLUME 7.3 fL (7.4-10.4); MONOCYTES 3.2 % (2-11); NEUTROPHILS 92.4 % (40-80); PLATELET COUNT 159 10x3/uL (130-400); RBC 4.02 10x6/uL (4.20-6.10); RDW 16.2 % (11.5-14.5); WBC 19.1 10x3/uL (4.8-10.8)
[2021-05-06 06:08] LABS: ALBUMIN 2.4 g/dL (3.4-5.0); ALKALINE PHOSPHATASE 121 U/L (30-120); ALT (SGPT) 26 U/L (10-68); BILIRUBIN - TOTAL 1.97 mg/dL (0.2-1.3); CALC OSMOLALITY 279 mosm/kg (275-300); CALCIUM 8.6 mg/dL (8.5-10.1); CARBON DIOXIDE 29.4 mmol/L (21.0-32.0); CHLORIDE - SERUM 101 mmol/L (98-107); CREATININE - SERUM 0.6 mg/dL (0.6-1.3); GLUCOSE 197 mg/dL (74-106); MAGNESIUM - SERUM 2.2 mg/dL (1.8-2.4); POTASSIUM - SERUM 4.5 mmol/L (3.5-5.1); PROTEIN - SERUM 7.3 g/dL (6.4-8.2); SODIUM 136 mmol/L (136-145); UREA NITROGEN 20 mg/dL (7-18); eGFR NON AFRICAN AMERICAN > 90 mL/min (90-120)
[2021-05-06 06:52] LABS: PROTIME 44.7 SECONDS (11.6-15.0)
[2021-05-06 06:54] LABS: INR 5.21 (0.85-1.17)
[2021-05-06 08:53] VITALS: BP 144/75
[2021-05-06 12:29] VITALS: BMI 77.1
--- NOTE | 2021-05-06 15:39 | NUR ---
CONVERSATION WITH DR HOROWITZ WHO STATES THAT HE SPOKE LENGTHY WITH PATIENT ABOUT HIM WANTING TO RESTART HIS KLONOPIN. DR HOROWITZ EXPLAINED EXTENSIVELY THAT WHILE THE PATIENT IS ON BIPAP CONTINUOUSLY THE KLONOPIN WOULD DECREASE HIS ABILITY TO BREATH AND HE COULD END UP BEING INTUBATED. PATIENT IS AWARE AND WANTS TO TAKE THE MEDICATION ANYWAY. DR HOROWITZ STATES HE WILL NOT ORDER AND IT IS UP TO PCP DR JUAREZ. ISHAAN CLARKE PAGED CABLE HOOKER FOR LARRY AND STATED HE WOULD NOT ORDER THE MEDICATION.
[2021-05-06 16:00] VITALS: BP 134/75
[2021-05-06 20:39] VITALS: BP 130/77
--- NOTE | 2021-05-07 01:00 | NUR ---
BIPAP ALARMING, MASK FOUND ON FLOOR. PT ATTEMPTING TO GET OOB, PARTER AT BEDSIDE EXPRESSING CONCERN. PT CONFUSED STATING HE IS GOING HOME. PARTNER STATES ITS NOT HIS BASELINE, O2 SATS IN THE 50S RR RATE IN THE 40S, ACUTE DISTERSS OBSERVED. RAPID RESPONSE CALLED.
[2021-05-07 03:08] LABS: MYCOPLASMA PNEUMO IGG <100 U/mL (0-99)
--- NOTE | 2021-05-07 06:00 | NUR ---
PT REQUESTING RT STATING HE IS HAVING TROUBLE BREATHING. PT O2 ON BIPAP AT 92% PT APPEARS TO BE EXUASTED. THIS NURSE HAS BEEN IN PT'S ROOM MANY TIMES THIS SHIFT. WHEN TAKING OFF BIPAP TO GIVE PT MEDICATION PT DROPS INTO 60'S 70'S WITHIN A MINUTE. RT AT BEDSIDE. WILL CONTINUE TO MONITOR.
[2021-05-07 06:41] VITALS: BP 128/70
[2021-05-07 07:19] LABS: BASOPHILS 0.2 % (0-2); EOSINOPHILS 0.4 % (0-7); HEMATOCRIT 35.3 % (42.0-54.0); HEMOGLOBIN 11.4 g/dL (13.5-17.5); LYMPHOCYTES 4.8 % (15-50); MCH 28.6 pg (26.0-34.0); MCHC 32.3 g/dL (31.0-37.0); MCV 88.7 fL (80.0-100.0); MEAN PLATELET VOLUME 7.7 fL (7.4-10.4); MONOCYTES 2.6 % (2-11); PLATELET COUNT 148 10x3/uL (130-400); RBC 3.98 10x6/uL (4.20-6.10); RDW 16.1 % (11.5-14.5); WBC 19.5 10x3/uL (4.8-10.8)
[2021-05-07 07:26] LABS: INR 6.97 (0.85-1.17); PROTIME 56.3 SECONDS (11.6-15.0)
[2021-05-07 07:32] LABS: ALBUMIN 2.3 g/dL (3.4-5.0); ALKALINE PHOSPHATASE 131 U/L (30-120); ALT (SGPT) 23 U/L (10-68); BILIRUBIN - TOTAL 2.06 mg/dL (0.2-1.3); CALC OSMOLALITY 276 mosm/kg (275-300); CALCIUM 8.6 mg/dL (8.5-10.1); CARBON DIOXIDE 30.2 mmol/L (21.0-32.0); CHLORIDE - SERUM 101 mmol/L (98-107); CREATININE - SERUM 0.6 mg/dL (0.6-1.3); GLUCOSE 161 mg/dL (74-106); MAGNESIUM - SERUM 2.1 mg/dL (1.8-2.4); POTASSIUM - SERUM 4.2 mmol/L (3.5-5.1); PROTEIN - SERUM 6.9 g/dL (6.4-8.2); SODIUM 136 mmol/L (136-145); UREA NITROGEN 19 mg/dL (7-18); eGFR NON AFRICAN AMERICAN > 90 mL/min (90-120)
[2021-05-07 10:12] LABS: ANTI-GLOMERULAR BASMENT MEMBRN 7 units (0-20)
[2021-05-07 11:16] VITALS: BP 126/71
--- NOTE | 2021-05-07 11:22 | NUR ---
RESULTS OF ABG CALLED TO DR HOROWITZ
[2021-05-07 15:16] VITALS: Ht 177.8 cm; Wt 99.3 kg
[2021-05-07 16:04] VITALS: BP 121/65; BP 132/75
--- NOTE | 2021-05-07 19:00 | NUR ---
REPORT RECEIVED. PATIENT IS AAOX4, SITTING UP IN BED. NO S/S OF DISTRESS OBSERVED ON BIPAP. PATIENT IS UNABLE TO COME OFF BIPAP FOR MORE THAN ENOUGH TIME TO TAKE PO MEDS WITHOUT DESATTING. PIV TO LT FA, PATENT, INFUSING NS @ KVO. NO FURTHER NEEDS AT THIS TIME. CL IN REACH, BED LOCKED AND LOWERED. WILL CPOC.
[2021-05-07 19:09] LABS: ANGIOTENSIN CONVERTING ENZYME 43 U/L (14-82)
--- NOTE | 2021-05-07 20:55 | NUR ---
FAMILY CALLED TO SEE IF WE CAN GET PATIENT A FAN DUE TO THEM TAKING THE FAN AND HIS PERSONAL BELONGINS WHEN THEY LEFT EARLIER THINKING THE PATIENT WAS BEING SENT TO ICU.
[2021-05-08] VITALS (14 sets, daily range): BP systolic 120–139; BP diastolic 69–98
--- NOTE | 2021-05-08 03:29 | NUR ---
PATIENT CONTINUES TAKING OFF BIPAP STATING HE CAN'T BREATHE AND HE IS HOT. PATIENT O2 SATS DROPPED INTO THE LOW 70S UPPER 60S. PLACED BIPAP BACK ON PATIENT AND O2 94% EXPLAINED TO PATIENT THAT HE HAS TO LEAVE HIS BIPAP ON IN ORDER TO MAINTAIN HIS O2 SATS. PATIENT STATES UNDERSTANDING.
--- NOTE | 2021-05-08 04:45 | NUR ---
PATIENT ATTEMPTED TO GET OUT OF BED BY HIMSELF. ASSISTED PATIENT TO CHAIR X2 ASSIST. PATIENT SATS WERE IN THE 80S, AFTER RESTING HE IS NOW SATING 92% CALLED RESPIRATORY TO COME ASSIST WITH ORAL CARE AND TO BE ABLE TO MAINTAIN O2 SAT.
[2021-05-08 05:15] LABS: BASOPHILS 1.1 % (0-2); EOSINOPHILS 0.3 % (0-7); HEMATOCRIT 34.8 % (42.0-54.0); HEMOGLOBIN 11.2 g/dL (13.5-17.5); LYMPHOCYTES 5.1 % (15-50); MCH 28.4 pg (26.0-34.0); MCV 88.6 fL (80.0-100.0); MEAN PLATELET VOLUME 8.1 fL (7.4-10.4); MONOCYTES 2.9 % (2-11); NEUTROPHILS 90.6 % (40-80); PLATELET COUNT 149 10x3/uL (130-400); RBC 3.93 10x6/uL (4.20-6.10); RDW 16.3 % (11.5-14.5); WBC 21.9 10x3/uL (4.8-10.8)
[2021-05-08 05:17] LABS: APTT 45.4 SECONDS (22.8-39.4)
[2021-05-08 05:24] LABS: INR 3.15 (0.85-1.17); PROTIME 30.1 SECONDS (11.6-15.0)
[2021-05-08 05:29] LABS: ALBUMIN 2.4 g/dL (3.4-5.0); ALKALINE PHOSPHATASE 138 U/L (30-120); ALT (SGPT) 20 U/L (10-68); BILIRUBIN - TOTAL 2.45 mg/dL (0.2-1.3); CALC OSMOLALITY 275 mosm/kg (275-300); CALCIUM 8.3 mg/dL (8.5-10.1); CARBON DIOXIDE 29.1 mmol/L (21.0-32.0); CHLORIDE - SERUM 99 mmol/L (98-107); CREATININE - SERUM 0.7 mg/dL (0.6-1.3); GLUCOSE 168 mg/dL (74-106); POTASSIUM - SERUM 4.6 mmol/L (3.5-5.1); PROTEIN - SERUM 6.8 g/dL (6.4-8.2); SODIUM 135 mmol/L (136-145); UREA NITROGEN 18 mg/dL (7-18); eGFR NON AFRICAN AMERICAN > 90 mL/min (90-120)
--- NOTE | 2021-05-08 10:36 | NUR ---
PT ARRIVED FROM M2. NOW ON BIPAP 100% 02 SATS 94% BP 129/84 HR 95
[2021-05-08 18:08] LABS: ANCA - ANTIMYELOPEROXIDASE <9.0 U/mL (0.0-9.0); ANCA - ANTIPROTEINASE 3 <3.5 U/mL (0.0-3.5); ANCA - ATYPICAL <1:20 titer (Neg:<1:20); ANCA - CYTOPLASMIC <1:20 titer (Neg:<1:20); ANCA - PERINUCLEAR <1:20 titer (Neg:<1:20)
--- NOTE | 2021-05-08 18:48 | NUR ---
TRANSFERRED TO CVICU SAFELY W/ [facility]. RT CALLED FOR LOW O2 SATS. UPDRAFT GIVEN.
--- NOTE | 2021-05-08 22:04 | NUR ---
DR HOROWITZ CALLED TO CHECK ON PT, UPDATED ON STATUS, ORDERS RECEIVED.
[2021-05-09] VITALS (74 sets, daily range): BP systolic 73–163; BP diastolic 48–88
--- NOTE | 2021-05-09 03:14 | NUR ---
June KOEHLER WITH ANESTHESIA PAGED AND CONSULTED FOR INTUBATION.
--- NOTE | 2021-05-09 03:21 | NUR ---
ALTHEA ADAN (PARTNER) CALLED, MESSAGE LEFT TO RETURN CALL.
--- NOTE | 2021-05-09 03:30 | NUR ---
PT PARTNER RETURNED CALL, NOTIFIED REGARDING INTUBATION/UPDATED ON PT STATUS, ALL QUESTIONS ANSWERED.
[2021-05-09 06:45] LABS: HEMOGLOBIN 9.7 g/dL (13.5-17.5); MCH 28.7 pg (26.0-34.0); MCHC 32.4 g/dL (31.0-37.0); MCV 88.6 fL (80.0-100.0); MEAN PLATELET VOLUME 7.9 fL (7.4-10.4); RBC 3.39 10x6/uL (4.20-6.10)
[2021-05-09 06:54] LABS: INR 2.31 (0.85-1.17); PROTIME 23.6 SECONDS (11.6-15.0)
[2021-05-09 06:55] LABS: PLATELET COUNT 71 10x3/uL (130-400)
[2021-05-09 07:23] LABS: LYMPHOCYTES 7 % (15-50); MONOCYTES 1 % (2-11); NEUTROPHILS 92 % (40-80)
[2021-05-09 07:24] LABS: PLATELET ESTIMATE DECREASED
[2021-05-09 07:58] LABS: ALKALINE PHOSPHATASE 139 U/L (30-120); ALT (SGPT) 19 U/L (10-68); BILIRUBIN - TOTAL 4.03 mg/dL (0.2-1.3); CALCIUM 7.9 mg/dL (8.5-10.1); CARBON DIOXIDE 24.3 mmol/L (21.0-32.0); CHLORIDE - SERUM 102 mmol/L (98-107); CREATININE - SERUM 0.7 mg/dL (0.6-1.3); POTASSIUM - SERUM 4.5 mmol/L (3.5-5.1); PROTEIN - SERUM 6.3 g/dL (6.4-8.2); SODIUM 136 mmol/L (136-145); eGFR NON AFRICAN AMERICAN > 90 mL/min (90-120)
[2021-05-09 08:01] LABS: CALC OSMOLALITY 283 mosm/kg (275-300); GLUCOSE 242 mg/dL (74-106); UREA NITROGEN 23 mg/dL (7-18)
--- NOTE | 2021-05-09 09:37 | NUR ---
CALL RECIVED FROM ANA ADAN PT'S SIGNIFICANT OTHER. PASSCODE VERIFIED. WAS TOLD PT CONTINUES ON VENT AND SEDATED WITH PROPOFOL AND FENTANYL. PROVIDED PHONE NUMBER FOR LUIS JOSEPH PT'S SON WHICH IS [phone]. IF HE CAN'T BE REACHED ON THIS NUMBER CALL [phone] WHICH IS LUIS'S 'S NUMBER.
--- NOTE | 2021-05-09 10:07 | NUR ---
DR. RAMIREZ PAGED AT THIS TIME.
--- NOTE | 2021-05-09 10:30 | NUR ---
DR. JUAREZ AT BEDSIDE. ORDER TO HOLD PO MEDS AT THIS TIME.
--- NOTE | 2021-05-09 16:03 | NUR ---
UNABLE TO REPOSITION PT EVERY TWO HRS. PT HAS BEEN VERY UNSTABLE. DESATED TO LOW 70S DURING CVL PLACEMENT. RESPIRATORY NOTIFED. PT DESATED TO LOW 80'S WHEN ATTEMPTED TO REPOSITION WITH BED. RETURENED TO LEVELED POSITIONED. PT RECOVERED. WILL CONTINUE TO MONITOR.
[2021-05-10] VITALS (97 sets, daily range): BP systolic 87–110; BP diastolic 49–73
--- NOTE | 2021-05-10 02:20 | NUR ---
ATTEMPTED OGT PLACEMENT X 2, DECREASED O2 SAT NOTED AND NO FURTHER ATTEMPTS AT THIS TIME.
[2021-05-10 06:02] LABS: BASOPHILS 0.1 % (0-2); EOSINOPHILS 0 % (0-7); HEMATOCRIT 28.3 % (42.0-54.0); HEMOGLOBIN 9.1 g/dL (13.5-17.5); LYMPHOCYTES 5.7 % (15-50); MCH 28.7 pg (26.0-34.0); MCHC 32.2 g/dL (31.0-37.0); MCV 89.1 fL (80.0-100.0); MEAN PLATELET VOLUME 9.2 fL (7.4-10.4); MONOCYTES 4.5 % (2-11); NEUTROPHILS 89.7 % (40-80); RBC 3.17 10x6/uL (4.20-6.10); RDW 15.9 % (11.5-14.5); WBC 23.8 10x3/uL (4.8-10.8)
--- NOTE | 2021-05-10 06:17 | NUR ---
PARTIAL BATH AND LINEN CHANGE DONE, VSS.
[2021-05-10 06:18] LABS: PLATELET COUNT 53 10x3/uL (130-400)
[2021-05-10 06:30] LABS: INR 2.17 (0.85-1.17); PROTIME 22.4 SECONDS (11.6-15.0)
[2021-05-10 07:08] LABS: ALBUMIN 1.9 g/dL (3.4-5.0); ALKALINE PHOSPHATASE 116 U/L (30-120); ALT (SGPT) 23 U/L (10-68); BILIRUBIN - TOTAL 1.89 mg/dL (0.2-1.3); CALC OSMOLALITY 285 mosm/kg (275-300); CALCIUM 8.6 mg/dL (8.5-10.1); CARBON DIOXIDE 29.3 mmol/L (21.0-32.0); CHLORIDE - SERUM 104 mmol/L (98-107); CREATININE - SERUM 0.7 mg/dL (0.6-1.3); GLUCOSE 151 mg/dL (74-106); MAGNESIUM - SERUM 2.5 mg/dL (1.8-2.4); PROTEIN - SERUM 6.4 g/dL (6.4-8.2); SODIUM 138 mmol/L (136-145); UREA NITROGEN 31 mg/dL (7-18); eGFR NON AFRICAN AMERICAN > 90 mL/min (90-120)
--- NOTE | 2021-05-10 08:47 | OP ---
PATIENT NAME: TARA JOSEPH MEDICAL RECORD: [id number] :50 LOCATION:D.CVI D.CV07 ADMISSION DATE:04/30/21 SURGEON: NOLBERTO RAMIREZ MD DATE OF OPERATION: 05/09/2021 PREOPERATIVE DIAGNOSES: 1. Pneumonia. 2. Ventilatory failure requiring mechanical ventilation. POSTOPERATIVE DIAGNOSES: 1. Pneumonia. 2. Ventilatory failure requiring mechanical ventilation. PROCEDURE: Insertion of right internal jugular triple lumen central venous catheter. SURGEON: Nolberto Ramirez MD MILL DRESSER: None. BLOOD LOSS: Minimal. ANESTHESIA: Local. COMPLICATIONS: None. A consent form was signed. The central venous line is being placed as the patient requires multiple drips and additional IV access is mandatory. OPERATIVE COURSE: The patient was seen in his ICU bed. The patient was positioned in the Trendelenburg position. The right neck was sterilely prepped and draped. A local anesthetic was used to infiltrate the skin and subcutaneous tissue at the base of the right neck. A right internal jugular vein was percutaneously accessed in an antegrade fashion. A guidewire passed easily. A small skin lila was accomplished. A vessel dilator was used to dilate a subcutaneous tract. A 16 cm triple lumen central venous catheter was inserted to the hub. It was sutured in place times 2. All lumens flushed easily and aspirated dark, nonpulsatile blood. A sterile dressing was applied. A portable chest x-ray revealed adequate placement of the central venous line without radiographic evidence of complication. TRANSINT:[id number] Voice Confirmation ID: [id number] DOCUMENT ID: [id number] NOLBERTO RAMIREZ MD at 0847 CC: [id number] DICTATION DATE: 05/09/21 160 EXAMINATION PROCTOR: 05/09/211947 ADM IN [facility] [address] [place] [address]
[2021-05-10 09:44] LABS: FIBRINOGEN 206 mg/dL (239-481)
[2021-05-10 10:08] LABS: ANA REFLEX - DIRECT Negative (Negative)
[2021-05-10 10:55] LABS: D-DIMER-QUANTITATIVE > 20.00 ug/mLFEU (0.20-0.54)
--- NOTE | 2021-05-10 11:06 | NUR ---
DR. URIOSTEGUI NOTIFIED OF FIBRINOGEN AND D-DIMER RESULTS.
--- NOTE | 2021-05-10 12:07 | NUR ---
CVP LINE INITIATED PER ORDER.
--- NOTE | 2021-05-10 12:15 | NUR ---
Nutrition Reassessment/Follow-up: Intubated 05/09. Diprivan running @ 36.4 mL/hr this AM; provides 961 kcal/day. Discussed in IDT rounds. Noted OGT unable to be placed overnight. Nurse to reattempt today. Will possibly start TF if able to place OGT. Diet: NPO Wt: 220.4# (05/10)IBW: 166# Labs noted: Glu 151, Mg 2.5, Alb 1.9 Meds noted: Humulin, Solumedrol, Diprivan, NS @ KVO, electrolyte protocol Est needs: 2262 kcal/day (PSU 2009) 75-90 g protein/day (1-1.2 g/kg IBW) 2262 mL fluid/day (1 mL/kcal) or per MD Nutrition Diagnosis: -Inadequate energy intake R/T intubation AEB NPO status. Nutrition Goals: -Initiate TF within 24 hrs. -Meet est fluid needs without fluid overload. -Stable dry wt. -Glu at or near normal. Nutrition Intervention: -If OGT placed, rec Pulmocare @ goal rate of 40 mL/hr; provides 1440 kcal (64% est needs) & 60 g protein (67-80% est needs) daily. Also receiving 961 kcal (42% est needs) daily from Diprivan. -Monitor wt. -RD will follow up within 1-2 days.
[2021-05-11] VITALS (94 sets, daily range): BP systolic 77–158; BP diastolic 46–93
[2021-05-11 05:56] LABS: ALKALINE PHOSPHATASE 106 U/L (30-120); ALT (SGPT) 22 U/L (10-68); CALCIUM 8.2 mg/dL (8.5-10.1); CARBON DIOXIDE 29.4 mmol/L (21.0-32.0); CHLORIDE - SERUM 105 mmol/L (98-107); CREATININE - SERUM 0.6 mg/dL (0.6-1.3); HEMATOCRIT 26.7 % (42.0-54.0); HEMOGLOBIN 8.6 g/dL (13.5-17.5); LDH 569 U/L (85-227); MAGNESIUM - SERUM 2.7 mg/dL (1.8-2.4); MCH 28.7 pg (26.0-34.0); MCHC 32.2 g/dL (31.0-37.0); MCV 89.2 fL (80.0-100.0); MEAN PLATELET VOLUME 9.9 fL (7.4-10.4); PHOSPHOROUS 4.1 mg/dL (2.5-4.9); PLATELET COUNT 53 10x3/uL (130-400); POTASSIUM - SERUM 5.2 mmol/L (3.5-5.1); PROTEIN - SERUM 6.3 g/dL (6.4-8.2); RBC 2.99 10x6/uL (4.20-6.10); RDW 15.7 % (11.5-14.5); SODIUM 138 mmol/L (136-145); UREA NITROGEN 31 mg/dL (7-18); WBC 18.6 10x3/uL (4.8-10.8); eGFR NON AFRICAN AMERICAN > 90 mL/min (90-120)
[2021-05-11 05:59] LABS: CALC OSMOLALITY 288 mosm/kg (275-300); GLUCOSE 206 mg/dL (74-106)
[2021-05-11 06:05] LABS: APTT 34.3 SECONDS (22.8-39.4)
[2021-05-11 06:06] LABS: INR 1.82 (0.85-1.17); PROTIME 19.6 SECONDS (11.6-15.0)
--- NOTE | 2021-05-11 06:30 | NUR ---
Shift summary: No changes in patient status, remains sedated. Levophed continues for BP support.
[2021-05-11 06:49] LABS: FIBRINOGEN 104 mg/dL (239-481)
[2021-05-11 06:50] LABS: D-DIMER-QUANTITATIVE > 20.00 ug/mLFEU (0.20-0.54)
[2021-05-11 14:12] LABS: EOSINOPHILS 1 % (0-7); LYMPHOCYTES 6 % (15-50); MONOCYTES 6 % (2-11); NEUTROPHILS 83 % (40-80); PLATELET ESTIMATE DECREASED; ROULEAUX OCC
--- NOTE | 2021-05-11 16:24 | NUR ---
HAVE TURNED THE LEVOPHED OFF AND DECREASED THE RATE ON THE PROPOFOL AND I STILL GET NO RESPONSE TO VOICE OR TO PAIN IN EXTREMITIES AT THIS POINT. PATIENT AT TIMES WILL ASSIST VENT. DR. ROBB SAID NO NG TUBE IN THE NARES.
--- NOTE | 2021-05-11 16:43 | NUR ---
THROUGHOUT THE DAY I HAVE BEEN DECREASING PROPOFOL TO SEE WHAT RESPONSE I WOULD GET. PATIENT FINALLY MOVES EXTREMITIES SPONTANEOUSLY AND BUCKS AND COUGHS ALOT ON THE VENT BUT NO RESPONSE TO REQUEST. PROPOFOL RATE INCREASED TO SEDATE PATIENT.
[2021-05-12] VITALS (74 sets, daily range): BP systolic 89–142; BP diastolic 49–92
[2021-05-12 06:05] LABS: APTT 31.6 SECONDS (22.8-39.4); BASOPHILS 0.3 % (0-2); EOSINOPHILS 0.1 % (0-7); HEMATOCRIT 24.8 % (42.0-54.0); INR 1.89 (0.85-1.17); LYMPHOCYTES 4.1 % (15-50); MCH 28.7 pg (26.0-34.0); MCHC 32.2 g/dL (31.0-37.0); MCV 89.3 fL (80.0-100.0); MEAN PLATELET VOLUME 9.7 fL (7.4-10.4); MONOCYTES 2.6 % (2-11); NEUTROPHILS 92.9 % (40-80); PROTIME 20.1 SECONDS (11.6-15.0); RBC 2.78 10x6/uL (4.20-6.10); RDW 15.7 % (11.5-14.5); WBC 14.6 10x3/uL (4.8-10.8)
[2021-05-12 06:10] LABS: ALBUMIN 1.8 g/dL (3.4-5.0); ALKALINE PHOSPHATASE 100 U/L (30-120); ALT (SGPT) 20 U/L (10-68); BILIRUBIN - TOTAL 1.23 mg/dL (0.2-1.3); CALCIUM 8.1 mg/dL (8.5-10.1); CARBON DIOXIDE 30.7 mmol/L (21.0-32.0); CHLORIDE - SERUM 108 mmol/L (98-107); CREATININE - SERUM 0.5 mg/dL (0.6-1.3); MAGNESIUM - SERUM 2.4 mg/dL (1.8-2.4); POTASSIUM - SERUM 4.7 mmol/L (3.5-5.1); PROTEIN - SERUM 5.8 g/dL (6.4-8.2); SODIUM 141 mmol/L (136-145); UREA NITROGEN 32 mg/dL (7-18); eGFR NON AFRICAN AMERICAN > 90 mL/min (90-120)
[2021-05-12 06:11] LABS: CALC OSMOLALITY 288 mosm/kg (275-300); GLUCOSE 115 mg/dL (74-106); PHOSPHOROUS 2.7 mg/dL (2.5-4.9)
[2021-05-12 06:35] LABS: PLATELET COUNT 69 10x3/uL (130-400)
--- NOTE | 2021-05-12 07:45 | NUR ---
PATIENT PULSE OX DOWN INTO 40-60%, RESP THERAPY ON PHONE. DR. ROBB CALLED. ORDERS RECEIVED. DIPRIVAN INCREASED TO 75 MCG/KG/MIN. FENTANYL AT 250 MCG/H. NS AT 30 ML HOUR. LEVOPHED AT 1 MCG. MONITOR IRREGULAR ATRIAL FLUTTER. PEEK PRESSURE ON VENT ABOVE 60. BILATERAL LATERAL LUNGS EQUAL DIMINISHED IN BASES. CONGESTION NOTED. MUÑIZ FOREIGN CLEAR URINE. VENT SETTING CHANGED MULTIPLE TIMES TRYING INCREASE PULSE OX WITH DR. ROBB ON PHONE. HEAD OF BED ELEVATED. FAMILY AND PARTNER NOTIFED OF PATIENT CONDITION. ABD SOFT.
[2021-05-12 08:36] LABS: ERYTHROCYTE SEDIMENTATION RATE 10 mm/hr (0-20)
--- NOTE | 2021-05-12 11:57 | NUR ---
Nutrition Follow-up: Intubated/sedated. Noted pt bradycardic with attempted OGT placement. Discussed in IDT rounds; will wait on alternative nutrition support 2/2 pt status. Receiving Diprivan @ 45.5 mL/hr at time of visit; provides 1201 kcal/day. Wt: 218.4# (05/12); 220.4# (05/10) Labs noted: Glu 115, Ca 8.1, Alb 1.8 Meds noted: Solumedrol, Protonix, Diprivan, Humulin, NS @ KVO, electrolyte protocol -Intubated x 3 days. No nutrition support currently. If OGT unable to be placed, pt may need PPN vs TPN if medically feasible and/or desired. -Monitor wt. -RD will follow up within 1-2 days.
--- NOTE | 2021-05-12 15:19 | NUR ---
FAMILY HERE. ALL FAMILY MEMBERS AGREE TO DNR. STATES THIS IS PATIENTS' WISH. DIPRIVAN DOWN TO 50 MCG/KG/MIN.
--- NOTE | 2021-05-12 17:45 | NUR ---
FAMILY HERE REQUESTING TERMINAL EXTUBATION OF PATIENT, STATES THE PATIENT WOULD NOT WANT TO BE ON LIFE SUPPORT. VECURIONUM DISCONTINUED. DR. ROBB NOTIFIED.
--- NOTE | 2021-05-12 18:00 | NUR ---
FAMILY AT BEDSIDE. EMOTIONAL SUPPORT PROVIDED.
--- NOTE | 2021-05-12 18:45 | NUR ---
PATIENT EXTUBATED WITH FAMILY AT BEDSIDE. DIPRIVAN AND FENTANY; TURNED OFF
--- NOTE | 2021-05-12 23:46 | NUR ---
1900 - RECEIVED PT FROM DAY SHIFT. TOLD PT HAD BEEN TERMINALLY EXTEBATED AND HAD ALREADY , HOWEVER, DOCTOR HAD NOT YET COME TO PRONOUNCE PT. BEFORE LEAVING DAY SHIFT SPOKE WITH DR. TERESA TO LET HIM KNOW OF PT'S PASSING. FAMILY AT BEDSIDE HAS SPOKEN WITH HOME, AND HOME WILL AWAIT CALL AFTER PRONOUNCEMENT.
--- NOTE | 2021-05-12 23:50 | NUR ---
0755 - CALLED ER TO SEE IF DR. TERESA HAD NOTIFIED ER DR ABOUT NEED TO PRONOUNCE PT. SPOKE WITH KELLY, SHE SPOKE WITH DOCTOR WHO STATED THAT HE HAD NOT HEARD ANYTHING, BUT WOULD COME SOON HE HAD A CHANCE. FAMILY REMAINS AT BEDSIDE.
--- NOTE | 2021-05-13 00:11 | NUR ---
1954 - PT STILL NOT PRONOUNCED. CALLED ER TO SEE IF DR. TERESA HAD CONTACTED ER DOCTOR. SPOKE WITH KELLY WHO SPOKE WITH DOCTOR. DOCTOR HAD NOT HEARD FROM DR. TERESA, BUT STATED THAT HE WOULD COME UP SOON HE COULD. FAMILY REMAINS AT BEDSIDE, STATING THAT THEY ARE PLANNING TO STAY UNTIL PT IS PRONOUNCED.
--- NOTE | 2021-05-13 00:13 | NUR ---
2114 - DR. TERESA ARRIVES ON UNIT AND PRONOUNCES PATIENT.
--- NOTE | 2021-05-13 00:13 | NUR ---
2126 - SPOKE WITH MINER INFORMATION CLERK, RASTA CARRINGTON. GIVEN PERMISSION TO RELEASE PATIENT TO HOME.
--- NOTE | 2021-05-13 00:15 | NUR ---
0005 - ACMS ARRIVED AND REMAINS RELEASED TO CARE OF [facility] HOME.
[2021-05-13 14:11] LABS: HEPARIN INDUCED PLATELET AB 0.108 OD (0.000-0.400)
== END 2021-05-13 00:05 | DRG 871 ==
LOC: D.ER 19:44 → D.CVICU 04-30 03:16 → D.M2 04-30 03:16 → D.ICU 04-30 03:16 → D.EDHOLD 04-30 03:16 → D.ICU 04-30 11:56 → D.M2 05-01 19:00 → D.ICU 05-08 10:23 → D.CVICU 05-08 18:31
PROVIDERS: Family Medicine; Internal Medicine Hematology & Oncology; Internal Medicine Pulmonary Disease; ADMIT Emergency Medicine; ATTEND Emergency Medicine
PROC: 5A09557 Assistance with Respiratory Ventilation, Greater than 96 Consecutive Hours, Continuous Positive Airway Pressure (ICD-10-PCS; 2021-05-04)
PROC: 05HM33Z Insertion of Infusion Device into Right Internal Jugular Vein, Percutaneous Approach (ICD-10-PCS; principal; 2021-05-09)
PROC: 5A1945Z Respiratory Ventilation, 24-96 Consecutive Hours (ICD-10-PCS; 2021-05-09)
PROC: 0BH17EZ Insertion of Endotracheal Airway into Trachea, Via Natural or Artificial Opening (ICD-10-PCS; 2021-05-09)
DX: A41.9 Sepsis, unspecified organism (principal); I50.31 Acute diastolic (congestive) heart failure; J96.21 Acute and chronic respiratory failure with hypoxia; D65 Disseminated intravascular coagulation [defibrination syndrome]; J18.9 Pneumonia, unspecified organism; J47.0 Bronchiectasis with acute lower respiratory infection; R04.2 Hemoptysis; D62 Acute posthemorrhagic anemia; D68.32 Hemorrhagic disorder due to extrinsic circulating anticoagulants; I27.20 Pulmonary hypertension, unspecified; I08.1 Rheumatic disorders of both mitral and tricuspid valves; I25.10 Atherosclerotic heart disease of native coronary artery without angina pectoris; I73.9 Peripheral vascular disease, unspecified; F41.9 Anxiety disorder, unspecified; F43.10 Post-traumatic stress disorder, unspecified; K21.9 Gastro-esophageal reflux disease without esophagitis; M19.90 Unspecified osteoarthritis, unspecified site; I87.2 Venous insufficiency (chronic) (peripheral); K57.90 Diverticulosis of intestine, part unspecified, without perforation or abscess without bleeding; R19.03 Right lower quadrant abdominal swelling, mass and lump; Z99.81 Dependence on supplemental oxygen; Z20.822 Contact with and (suspected) exposure to COVID-19; S30.1XXA Contusion of abdominal wall, initial encounter; X58.XXXA Exposure to other specified factors, initial encounter; Z87.01 Personal history of pneumonia (recurrent); Z95.1 Presence of aortocoronary bypass graft; Z95.5 Presence of coronary angioplasty implant and graft; Z95.0 Presence of cardiac pacemaker; Z79.01 Long term (current) use of anticoagulants; T45.515A Adverse effect of anticoagulants, initial encounter; D69.6 Thrombocytopenia, unspecified; I46.9 Cardiac arrest, cause unspecified